=== PATIENT | female | born 1935 | race Caucasian/White ===

== ENCOUNTER 2023-03-02 17:26 | Emergency (ER) | payer MEDICARE, OTHER ==
[~2023-03-02] VITALS: Ht 157.5 cm; Wt 59.9 kg
[2023-03-02 19:41] LABS: BASOPHILS ABSOLUTE AUTO 0.04 K/mm3 (0.00-0.23); BASOPHILS PERCENT AUTO 1 % (0-2); EOSINOPHILS ABSOLUTE AUTO 0.32 K/mm3 (0.00-0.68); EOSINOPHILS PERCENT AUTO 6 % (0-6); Hematocrit 33.9 % (33.0-51.0); Hemoglobin 10.9 g/dL (11.5-16.0); IMMATURE GRAN ABSOLUTE AUTO 0.01 K/mm3 (0.00-0.10); IMMATURE GRAN PERCENT AUTO 0 % (0-1); LYMPHOCYTES ABSOLUTE AUTO 1.04 K/mm3 (0.84-5.20); LYMPHOCYTES PERCENT AUTO 18 % (21-46); MONOCYTES ABSOLUTE AUTO 0.76 K/mm3 (0.16-1.47); MONOCYTES PERCENT AUTO 13 % (4-13); Mean Corpuscular HGB 28.9 pg (26.0-34.0); Mean Corpuscular HGB Conc 32.2 g/dL (31.5-36.5); Mean Corpuscular Volume 90 fL (80-100); Mean Platelet Volume 9.5 fL (9.1-12.4); NEUTROPHILS ABSOLUTE AUTO 3.58 K/mm3 (1.96-9.15); NEUTROPHILS PERCENT AUTO 62 % (41-73); Platelet Count 286 K/mm3 (150-400); RDW Coefficient Variation 13.9 % (11.7-14.2); Red Blood Cell Count 3.77 M/mm3 (3.80-5.20); White Blood Cell Count 5.75 K/mm3 (4.00-11.30)
[2023-03-02 19:51] LABS: Albumin, Blood 3.2 g/dL (3.4-5.0); Albumin/Globulin Ratio 0.7 (0.8-1.8); Bilirubin, Total 0.2 mg/dL (0.1-1.0); Bun/Creatinine Ratio 34.1 (12.0-20.0); Calcium, Blood 9.5 mg/dL (8.5-10.1); Creatinine, Blood 0.53 mg/dL (0.40-1.00); Globulin, Blood 4.3 g/dL (2.2-4.0); Total Protein, Blood 7.5 g/dL (6.4-8.2)
[2023-03-02 21:30] VITALS: BP 127/64
[2023-03-02] MEDS ORDERED: Primidone50 MG PO (21:45)
[2023-03-02] MEDS ORDERED: VALSARTAN160 MG PO (21:45)
[2023-03-02] MEDS ORDERED: Ventolin/Prove6.7 GM INH (21:45)
[2023-03-02] MEDS ORDERED: SYMBICORT 16010.2 GM IH (21:46)
[2023-03-02] MEDS ORDERED: ELIQUIS2.5 M1 PO (21:46)
[2023-03-02] MEDS ORDERED: AMLODIPINE BESYL5 MG PO (21:46)
[2023-03-02] MEDS ORDERED: Pravastatin Sod80 MG PO (21:46)
[2023-03-02] MEDS ORDERED: AREXVY VIA120 MCG/0. IM (21:46)
[2023-03-02] MEDS ORDERED: ESCI10 PO (21:47)
[2023-03-02] MEDS ORDERED: METO100ER PO (21:47)
[2023-03-02] MEDS ORDERED: FENO145 PO (21:48)
[2023-03-02] MEDS ORDERED: Chromium Pico400 MCG (21:48)
[2023-03-02] MEDS ORDERED: COQ-10100 MG PO (21:48)
[2023-03-02] MEDS ORDERED: BIOTIN1 MG PO (21:48)
[2023-03-02] MEDS ORDERED: TUMS500 MG PO (21:48)
[2023-03-02] MEDS ORDERED: VITAMIN D310 MC4 PO (21:49)
[2023-03-02] MEDS ORDERED: CETI5 PO (21:49)
[2023-03-02] MEDS ORDERED: C COMPLEX1000 M1 PO (21:49)
[2023-03-02] MEDS ORDERED: MELA3 PO (21:49)
== END 2023-03-02 22:08 | disposition home or self-care (01) ==
LOC: ER 17:26
PROVIDERS: Physician Assistant
DX: K64.4 Residual hemorrhoidal skin tags (principal); K92.2 Gastrointestinal hemorrhage, unspecified; D64.9 Anemia, unspecified; I48.91 Unspecified atrial fibrillation; Z91.048 Other nonmedicinal substance allergy status; Z79.01 Long term (current) use of anticoagulants; Z79.899 Other long term (current) drug therapy
CPT/HCPCS: 80053; 82272; 85025; 93005; 93010; 99285-25

== ENCOUNTER 2023-10-25 14:00 | Emergency (ER) | payer MEDICARE, OTHER ==
[~2023-10-25] VITALS: Ht 160 cm; Wt 54.9 kg
[~2023-10-25 14:00] MED LIST: AMLODIPINE BESYL5 MG PO; AREXVY VIA120 MCG/0. IM; BIOTIN1 MG PO; C COMPLEX1000 M1 PO; CETI5 PO; COQ-10100 MG PO; Chromium Pico400 MCG; ELIQUIS2.5 M1 PO; ESCI10 PO; FENO145 PO; MELA3 PO; METO100ER PO; Pravastatin Sod80 MG PO; Primidone50 MG PO; SYMBICORT 16010.2 GM IH; TUMS500 MG PO; VALSARTAN160 MG PO; VITAMIN D310 MC4 PO; Ventolin/Prove6.7 GM INH
[2023-10-25 14:34] VITALS: BP 115/8
[2023-10-25 14:54] LABS: BASOPHILS ABSOLUTE AUTO 0.03 K/mm3 (0.00-0.23); BASOPHILS PERCENT AUTO 1 % (0-2); EOSINOPHILS ABSOLUTE AUTO 0.12 K/mm3 (0.00-0.68); EOSINOPHILS PERCENT AUTO 2 % (0-6); Hematocrit 33.4 % (33.0-51.0); Hemoglobin 10.5 g/dL (11.5-16.0); IMMATURE GRAN ABSOLUTE AUTO 0.01 K/mm3 (0.00-0.10); IMMATURE GRAN PERCENT AUTO 0 % (0-1); LYMPHOCYTES ABSOLUTE AUTO 0.66 K/mm3 (0.84-5.20); LYMPHOCYTES PERCENT AUTO 10 % (21-46); MONOCYTES ABSOLUTE AUTO 0.67 K/mm3 (0.16-1.47); MONOCYTES PERCENT AUTO 10 % (4-13); Mean Corpuscular HGB 29.2 pg (26.0-34.0); Mean Corpuscular HGB Conc 31.4 g/dL (31.5-36.5); Mean Corpuscular Volume 93 fL (80-100); Mean Platelet Volume 9.7 fL (9.1-12.4); NEUTROPHILS ABSOLUTE AUTO 5.09 K/mm3 (1.96-9.15); NEUTROPHILS PERCENT AUTO 77 % (41-73); Platelet Count 292 K/mm3 (150-400); RDW Coefficient Variation 15.9 % (11.7-14.2); RDW Standard Deviation 54.6 fL (35.1-46.3); White Blood Cell Count 6.58 K/mm3 (4.00-11.30)
[2023-10-25 15:08] LABS: Albumin, Blood 2.9 g/dL (3.4-5.0); Albumin/Globulin Ratio 0.8 (0.8-1.8); Bilirubin, Total 0.6 mg/dL (0.1-1.0); Bun/Creatinine Ratio 31.9 (12.0-20.0); Calcium, Blood 8.8 mg/dL (8.5-10.1); Creatinine, Blood 0.44 mg/dL (0.40-1.00); Globulin, Blood 3.6 g/dL (2.2-4.0); Potassium, Blood 3.5 mmol/L (3.5-5.5); Total Protein, Blood 6.5 g/dL (6.4-8.2)
[2023-10-26] MEDS ORDERED: Zithromax250 MG PO (10:53)
== END 2023-10-25 16:51 | disposition home or self-care (01) ==
LOC: ER 14:00
PROVIDERS: Emergency Medicine
DX: R09.02 Hypoxemia (principal); J44.9 Chronic obstructive pulmonary disease, unspecified; Z79.899 Other long term (current) drug therapy; Z88.0 Allergy status to penicillin; Z88.8 Allergy status to other drugs, medicaments and biological substances; Z91.048 Other nonmedicinal substance allergy status
CPT/HCPCS: 71045; 80053; 85025; 93005; 93010; 99285-25